=== PATIENT | male | born 1975 ===

== ENCOUNTER 2017-06-16 08:17 | Observation (INO) | payer BC ==
--- NOTE | 2017-06-16 08:59 | ED PDOC ---
HPI: Abdomen Time Seen by Provider: 06/16/17 08:20 Chief Complaint (Nursing): Abdominal Pain Chief Complaint (Provider): Abdominal Pain History Per: Patient History/Exam Limitations: no limitations Onset/Duration Of Symptoms: Days (x2) Current Symptoms Are (Timing): Still Present Location Of Pain/Discomfort: RLQ Additional Complaint(s): Anthony Torres is a 41 year old male presenting to the ED for right lower quadrant abdominal pain occurring since Friday associated with 3 episodes of vomiting. The patient denies diarrhea or fever. PMD: Non [facility] Provider Past Medical History Reviewed: Historical Data, Nursing Documentation, Vital Signs Vital Signs: Last Vital Signs Temp 97.0 F L 06/16/17 08:36 Pulse 93 H 06/16/17 08:36 Resp 19 06/16/17 08:36 BP 112/70 06/16/17 08:36 Pulse Ox 99 06/16/17 09:00 - Medical History PMH: No Chronic Diseases - Family History Family History: States: Unknown Family Hx - Social History Current smoker - smoking cessation education provided: No Ex-Smoker (has not smoked in the last 12 months): No Alcohol: Social Drugs: Denies - Home Medications Home Medications: Ambulatory Orders Medication Instructions Recorded Magaldrate/Simethicone [Ri-Mag 80 mg PO DAILY 06/16/17 Plus Suspension] - Allergies Allergies/Adverse Reactions: Allergies Allergy/AdvReac Type Severity Reaction Status Date / Time No Known Allergies Allergy Verified 06/16/17 08:39 Review of Systems ROS Statement: Except As Marked, All Systems Reviewed And Found Negative Constitutional: Negative for: Fever Gastrointestinal: Positive for: Vomiting, Abdominal Pain (RLQ abdominal pain). Negative for: Diarrhea Physical Exam - Reviewed Nursing Documentation Reviewed: Yes Vital Signs Reviewed: Yes - Physical Exam Appears: Positive for: Non-toxic, No Acute Distress Head Exam: Positive for: ATRAUMATIC, NORMOCEPHALIC Cardiovascular/Chest: Positive for: Regular Rate, Rhythm Respiratory: Positive for: Normal Breath Sounds Gastrointestinal/Abdominal: Positive for: Tenderness (to RLQ), Guarding (to RLQ) Neurologic/Psych: Positive for: Alert, Oriented (X3). Negative for: Motor/ Sensory Deficits - Laboratory Results Result Diagrams: 06/16/17 09:05 06/16/17 09:05 - ECG O2 Sat by Pulse Oximetry: 99 (RA) Pulse Ox Interpretation: Normal Medical Decision Making Medical Decision Making: Time: 08:20 Impression: Abdominal Pain Plan: * CT Abd & Pelvis IV contrast only * CMP * CBC (with differential) * Reevaluation Scribe Attestation: Documented by Suad Silver, acting as a scribe for David Garcia MD. Provider Scribe Attestation: All medical record entries made by the Scribe were at my direction and personally dictated by me. I have reviewed the chart and agree that the record accurately reflects my personal performance of the history, physical exam, medical decision making, and the department course for this patient. I have also personally directed, reviewed, and agree with the discharge instructions and disposition. Disposition - Clinical Impression Clinical Impression: Appendicitis - Patient ED Disposition Is Patient to be Admitted: Yes - Disposition Disposition Time: 10:25 Condition: FAIR Forms: [employer] (Slovenian) - Pt Status Changed To: Hospital Disposition Of: Observation - POA Present On Arrival: None
[2017-06-16 09:16] LABS: BASO # 0.1 K/uL (0.0-0.2); BASO % 0.5 % (0.0-2.0); EOS % 0.2 % (0.0-4.0); HEMATOCRIT 42.1 % (35.0-51.0); LYMPH # 1.2 K/uL (1.0-4.3); LYMPH % 7.8 % (20.0-40.0); MEAN CELL VOLUME 92.9 fl (80.0-94.0); MEAN CORPUSCULAR HEMOGLOBIN 31.2 pg (27.0-31.0); MEAN CORPUSCULAR HGB CONC 33.6 g/dL (33.0-37.0); MONO # 1.1 K/uL (0.0-0.8); MONO % 7.3 % (0.0-10.0); NEUT # 13.2 K/uL (1.8-7.0); NEUT % 84.2 % (50.0-75.0); NRBC % 0.1 % (0.0-0.0); PLATELET COUNT 185 K/uL (130-400); RED CELL DISTRIBUTION WIDTH 12.4 % (11.5-14.5); WHITE BLOOD COUNT 15.7 K/uL (4.8-10.8)
[2017-06-16 09:31] LABS: ALB/GLOB RATIO 1.4 (1.0-2.1); ALKALINE PHOSPHATASE 50 U/L (38-126); ALT/SGPT 30 U/L (21-72); AST/SGOT 24 U/L (17-59); BILIRUBIN,TOTAL 1.2 mg/dl (0.2-1.3); BLOOD UREA NITROGEN 11 mg/dl (9-20); CALCIUM 9.7 mg/dL (8.4-10.2); CARBON DIOXIDE 30 mmol/L (22-30); CHLORIDE 100 mmol/L (98-107); GFR AFRICAN-AMERICAN > 60; GLUCOSE,RANDOM 110 mg/dL (75-110); POTASSIUM 4.2 MMOL/L (3.6-5.0); SODIUM 142 mmol/l (132-148); TOTAL PROTEIN 7.8 G/DL (6.3-8.2)
[2017-06-16] MEDS ORDERED: Iohexol 300 100 ML IJ ONE (09:54)
--- NOTE | 2017-06-16 10:25 | CT ---
PROCEDURE: CT abdomen and pelvis dated 06/16/2017 HISTORY: RLQ pain COMPARISON: None. TECHNIQUE: Contiguous axial images of the abdomen and pelvis. Pelvis performed following oral and intravenous injection of approximately 99 cc Omnipaque 300 contrast Coronal and Sagittal reformats generated. Radiation dose: Total exam DLP = 561.86 mGy-cm. This CT exam was performed using one or more of the following dose reduction techniques: Automated exposure control, adjustment of the mA and/or kV according to patient size, and/or use of iterative reconstruction technique. FINDINGS: LOWER THORAX: Unremarkable. LIVER: Liver exhibits relatively normal size measuring approximately 17.5 cm in CC dimension. Very mild diffuse fatty hepatic infiltration. No obvious hepatic mass collection or calcification. Portal and splenic veins are opacified. . GALLBLADDER AND BILE DUCTS: The gallbladder is physiologically distended. No evidence of intraluminal gallbladder calculi. No pericholecystic fluid collections are identified. PANCREAS: The pancreas appears grossly unremarkable without mass collection or calcification. No significant ductal dilatation SPLEEN: Spleen exhibits normal size and attenuation pattern without mass collection or calcification. Adjacent small splenule along adjacent to the inferior border of the main body of the spleen. ADRENALS: No adrenal lesions. . KIDNEYS AND URETERS: The kidneys demonstrate symmetric nephrograms. No evidence of nephrolithiasis or hydronephrosis. No obvious renal mass or collection. BLADDER: Urinary bladder is incompletely distended which presumably accounts for thick-walled appearance. Muscular hypertrophy may contribute. REPRODUCTIVE: Prostate gland and seminal vesicles appear grossly unremarkable. APPENDIX: There is dilatation and wall thickening of the appendix with infiltration can't rule out possibly a small amount of fluid within the adjacent mesentery consistent with acute appendicitis. . Microperforation not excluded BOWEL: Evaluation of the bowel is limited due to the lack of oral contrast material. Stomach is incompletely distended which presumably accounts for thick-walled appearance. Possibility of a gastritis not excluded. Visualized loops of small bowel exhibit normal contour and caliber. No evidence of acute mechanical small bowel obstruction. There is a moderately large amount of stool within the cecum and at ascending and to a lesser degree transverse colon consistent with fecal retention/constipation. PERITONEUM: Unremarkable. No fluid collection. No free air. . Small fat containing umbilical hernia. LYMPH NODES: Few small nonspecific retroperitoneal lymph nodes. In addition, there are several small to medium sized lymph nodes in the right mid and lower quadrant of the abdomen that may represent concomitant mesenteric adenitis VASCULATURE: Unremarkable. No aortic aneurysm. BONES: Minor multilevel degenerative spondylosis of the lower thoracic and lumbar spine OTHER FINDINGS: None. IMPRESSION: Findings consistent with acute appendicitis as described. Microperforation not excluded. Several small to medium sized lymph nodes right mid and lower abdomen may represent concomitant mesenteric adenitis
[2017-06-16] MEDS ORDERED: Piperacillin/Tazobact 3.375 GM in Sodium Chloride 0.9% 100 ML IVPB STA (10:52)
--- NOTE | 2017-06-16 11:36 | CP.PCM.CON ---
History of Present Illness - History of Present Illness History of Present Illness: General Surgery Consult note for Dr. Calhoun Consulted for: Acute appendicitis Patient is a 41 year old male who denies PMH except for a left chest tube placement as an who presented to the ED with severe abdominal pain, nausea, and vomiting for 2 days. Patient states that after dinner on Friday he had pain in the epigastrium that spread to the RLQ. On Friday he had nausea, NB/NB emesis, and subjective fever and chills. Patient came to ER this AM after symptoms did not resolve. Patient denies any diarrhea, hematochezia, melena, hematemesis, dysuria, hematuria, chest pain, SOB, or any other symptoms. CT of abdomen and pelvis showed acute appendicitis with possible microperforation PMH: denies PSH: chest tube as All NKDA Soc: denies tobacco, 6 glasses of wine/week, denies illicit drugs Review of Systems - Review of Systems All systems: reviewed and no additional remarkable complaints except - Constitutional Constitutional: Chills, Fever. absent: Weakness - Cardiovascular Cardiovascular: absent: Chest Pain, Chest Pain at Rest, Dyspnea - Respiratory Respiratory: absent: Cough, Dyspnea, Dyspnea on Exertion - Gastrointestinal Gastrointestinal: As Per HPI, Abdominal Pain, Nausea, Vomiting. absent: Diarrhea, Hematemesis, Loose Stools, Melena - Genitourinary Genitourinary: Pyuria. absent: Dysuria - Musculoskeletal Musculoskeletal: Back Pain. absent: Numbness, Tingling - Neurological Neurological: absent: Numbness, Tingling Past Patient History - Infectious Disease Hx of Infectious Diseases: None - Past Medical History & Family History Past Medical History?: No - Past Social History Smoking Status: Never Smoked - CARDIAC Hx Cardiac Disorders: No - PULMONARY Hx Respiratory Disorders: Yes Other/Comment: left lung atelectasis as a child - NEUROLOGICAL Hx Neurological Disorder: No - HEENT Hx HEENT Problems: No - RENAL Hx Chronic Kidney Disease: No - ENDOCRINE/METABOLIC Hx Endocrine Disorders: No - HEMATOLOGICAL/ONCOLOGICAL Hx Blood Disorders: No - INTEGUMENTARY Hx Dermatological Problems: No - MUSCULOSKELETAL/RHEUMATOLOGICAL Hx Musculoskeletal Disorders: No - GASTROINTESTINAL Hx Gastrointestinal Disorders: No - GENITOURINARY/GYNECOLOGICAL Hx Genitourinary Disorders: No - PSYCHIATRIC Hx Psychophysiologic Disorder: No Hx Emotional Abuse: No Hx Physical Abuse: No Hx Substance Use: No - SURGICAL HISTORY Hx Surgeries: Yes Other/Comment: left chest tube in childhood - ANESTHESIA Hx Anesthesia: Yes Hx Anesthesia Reactions: No Meds Allergies/Adverse Reactions: Allergies Allergy/AdvReac Type Severity Reaction Status Date / Time No Known Allergies Allergy Verified 06/16/17 08:39 - Medications Medications: Current Medications Piperacillin Sod/Tazobactam (Sod 3.375 gm/ Sodium Chloride) 100 mls @ 100 mls/ hr IVPB STAT STA Stop: 06/16/17 11:51 Results - Vital Signs Recent Vital Signs: Last Vital Signs Temp 97.0 F L 06/16/17 08:36 Pulse 72 06/16/17 10:28 Resp 19 06/16/17 08:36 BP 112/70 06/16/17 08:36 Pulse Ox 99 06/16/17 10:25 - Labs Result Diagrams: 06/16/17 09:05 06/16/17 09:05
--- NOTE | 2017-06-16 11:40 | CP.PCM.HP ---
History of Present Illness - History of Present Illness History of Present Illness: History and physical for Dr. Manjinder Calhoun 41M with acute appendicitis Patient is a 41 year old male who denies PMH except for a left chest tube placement as an infant who presented to the ED with severe abdominal pain, nausea, and vomiting for 2 days. Patient states that after dinner on Friday he had pain in the epigastrium that spread to the RLQ. On Friday he had nausea, NB/NB emesis, and subjective fever and chills. Patient came to ER this AM after symptoms did not resolve. Patient denies any diarrhea, hematochezia, melena, hematemesis, dysuria, hematuria, chest pain, SOB, or any other symptoms. CT of abdomen and pelvis showed acute appendicitis PMH: denies PSH: chest tube as infant All NKDA Soc: denies tobacco, 6 glasses of wine/week, denies illicit drugs Present on Admission - Present on Admission Any Indicators Present on Admission: No Review of Systems - Review of Systems Review of Systems: All systems: reviewed and no additional remarkable complaints except - Constitutional Constitutional: Chills, Fever. absent: Weakness - Cardiovascular Cardiovascular: absent: Chest Pain, Chest Pain at Rest, Dyspnea - Respiratory Respiratory: absent: Cough, Dyspnea, Dyspnea on Exertion - Gastrointestinal Gastrointestinal: As Per HPI, Abdominal Pain, Nausea, Vomiting. absent: Diarrhea, Hematemesis, Loose Stools, Melena - Genitourinary Genitourinary: Pyuria. absent: Dysuria - Musculoskeletal Musculoskeletal: Back Pain. absent: Numbness, Tingling - Neurological Neurological: absent: Numbness, Tingling Past Patient History - Infectious Disease Hx of Infectious Diseases: None - Past Medical History & Family History Past Medical History?: No Past Family History: Reviewed and not pertinent - Past Social History Smoking Status: Never Smoked Chewing Tobacco Use: No Alcohol: < 2 Drinks/Day Drugs: Denies Home Situation {Lives}: With Family - CARDIAC Hx Cardiac Disorders: No - PULMONARY Hx Respiratory Disorders: Yes Other/Comment: left lung atelectasis as a child - NEUROLOGICAL Hx Neurological Disorder: No - HEENT Hx HEENT Problems: No - RENAL Hx Chronic Kidney Disease: No - ENDOCRINE/METABOLIC Hx Endocrine Disorders: No - HEMATOLOGICAL/ONCOLOGICAL Hx Blood Disorders: No - INTEGUMENTARY Hx Dermatological Problems: No - MUSCULOSKELETAL/RHEUMATOLOGICAL Hx Musculoskeletal Disorders: No - GASTROINTESTINAL Hx Gastrointestinal Disorders: No - GENITOURINARY/GYNECOLOGICAL Hx Genitourinary Disorders: No - PSYCHIATRIC Hx Psychophysiologic Disorder: No Hx Emotional Abuse: No Hx Physical Abuse: No Hx Substance Use: No - SURGICAL HISTORY Hx Surgeries: Yes Other/Comment: left chest tube in childhood - ANESTHESIA Hx Anesthesia: Yes Hx Anesthesia Reactions: No Meds Allergies/Adverse Reactions: Allergies Allergy/AdvReac Type Severity Reaction Status Date / Time No Known Allergies Allergy Verified 06/16/17 08:39 Physical Exam - Constitutional Appears: Non-toxic, No Acute Distress - Head Exam Head Exam: ATRAUMATIC, NORMOCEPHALIC - Eye Exam Eye Exam: Normal appearance. absent: Conjunctival injection, Scleral icterus - Respiratory Exam Respiratory Exam: NORMAL BREATHING PATTERN. absent: Accessory Muscle Use, Respiratory Distress - Cardiovascular Exam Cardiovascular Exam: RRR - GI/Abdominal Exam GI & Abdominal Exam: Soft, Tenderness (RUQ and RLQ, periumbilical). absent: Distended Additional comments: negative rovsing's sign, positive mcburney's point tenderness - Extremities Exam Extremities exam: Negative for: calf tenderness, pedal edema, tenderness - Neurological Exam Neurological exam: Alert, Oriented x3 - Psychiatric Exam Psychiatric exam: Normal Affect, Normal Mood - Skin Skin Exam: Dry, Intact, Warm Results - Vital Signs Recent Vital Signs: Last Vital Signs Temp 97.0 F L 06/16/17 08:36 Pulse 72 06/16/17 10:28 Resp 19 06/16/17 08:36 BP 112/70 06/16/17 08:36 Pulse Ox 99 06/16/17 10:25 - Labs Result Diagrams: 06/16/17 09:05 06/16/17 09:05 Assessment & Plan - Assessment and Plan (Free Text) Assessment: 41M with Acute appendicitis Afebrile WBC: 15.7 CT: dilated appendix with wall thickening and surrounding fat stranding Plan: -OR today for laparoscopic appendectomy -NPO -IV abx, IV fluids -SCD's, incentive spirometer -daily CBC/CMP -PRN pain medication and nausea medication Discussed with Dr. Lj Sanders, PGY2
[2017-06-16] MEDS ORDERED: Piperacillin/Tazobact 3.375 gm Inj IVPB ONE ×2 (11:44→16:00)
[2017-06-16] MEDS: Lactated Ringer's 1,000 ML IV SCH ×2 (11:53→21:03)
[2017-06-16 12:37] LABS: NEUTROPHIL 82 % (42-75); TOTAL CELLS COUNTED 100
[2017-06-16] MEDS ORDERED: Lidocaine 1% Inj (20ml) ONE (13:03)
[2017-06-16] MEDS ORDERED: Bupivacaine 0.5% Inj(30mL) ONE (13:04)
--- NOTE | 2017-06-16 14:58 | RAD ---
PROCEDURE: CHEST RADIOGRAPH, 1 VIEW HISTORY: pre op COMPARISON: None available. FINDINGS: LUNGS: Clear. PLEURA: Mild biapical pleural thickening. No evidence of effusion or pneumothorax CARDIOVASCULAR: Normal. OSSEOUS STRUCTURES: No significant abnormalities. VISUALIZED UPPER ABDOMEN: Normal. OTHER FINDINGS: None. IMPRESSION: No acute consolidation. Mild biapical pleural thickening.
[2017-06-16] MEDS ORDERED: Propofol 10 mg/ml Inj (20 ML) ONE ×2 (15:24→16:35)
[2017-06-16] MEDS ORDERED: ePHEDrine 50 mg/ml Inj ONE (15:24)
[2017-06-16] MEDS ORDERED: Rocuronium 10 mg/ml (5 ml) ONE (15:25)
[2017-06-16] MEDS ORDERED: Succinylcholine 200 mg/10 ml Inj IV ONE (15:26)
[2017-06-16] MEDS ORDERED: Lidocaine 4% (Laryng-O-Jet) Kit MM ONE (15:26)
[2017-06-16] MEDS ORDERED: Midazolam 2 MG/2 ML VIAL ONE (15:40)
--- NOTE | 2017-06-16 15:42 | CARD ---
APPROVED REPORT EKG Measurement Heart [id number] <Conclusion> Normal sinus rhythm Incomplete right bundle branch block Borderline ECG
[2017-06-16] MEDS ORDERED: Lactated Ringer's 1,000 ML IV ONE ×2 (15:50→16:50)
[2017-06-16] MEDS ORDERED: Dexamethasone 4 mg/1 ml ONE (16:08)
[2017-06-16] MEDS ORDERED: Bupivacaine 0.5% 50 ML IJ ONE ×2 (16:15)
[2017-06-16] MEDS ORDERED: Neostigmine Methylsulfate 3mg/3ml Syringe IV ONE (16:36)
[2017-06-16] MEDS ORDERED: HYDROmorphone 0.5 mg/0.5 ml ISec IVP PRN (17:42)
--- NOTE | 2017-06-16 17:42 | PCM.SURG1 ---
Surgeon's Initial Post Op Note - Surgeon's Notes Surgeon: Dr. Calhoun Director Utilization Management: Dr. Moody PGY3, Dr. Sanders PGY2 Type of Anesthesia: General Endo, Local Pre-Operative Diagnosis: acute appendicitis Operative Findings: acute inflammed appendix Post-Operative Diagnosis: same Operation Performed: laparoscopic appendectomy Specimen/Specimens Removed: appendix Estimated Blood Loss: EBL {In ML}: 15 Blood Products Given: N/A Drains Used: No Drains Post-Op Condition: Good Date of Surgery/Procedure: 06/16/17 Time of Surgery/Procedure: 17:44
[2017-06-16] MEDS ORDERED: Oxycodone/Acetaminophen 5/325 mg Tab PO PRN (17:46)
[2017-06-16] MEDS: Piperacillin/Tazobact 3.375 GM in Sodium Chloride 0.9% 100 ML IVPB SCH (21:02)
[2017-06-17] MEDS: Piperacillin/Tazobact 3.375 GM in Sodium Chloride 0.9% 100 ML IVPB SCH ×2 (03:22→09:16)
[2017-06-17] MEDS: Lactated Ringer's 1,000 ML IV SCH ×2 (03:30→11:45)
[2017-06-17 06:30] LABS: MEAN CELL VOLUME 93.3 fl (80.0-94.0); MEAN CORPUSCULAR HEMOGLOBIN 31.2 pg (27.0-31.0); MEAN CORPUSCULAR HGB CONC 33.4 g/dL (33.0-37.0); RED CELL DISTRIBUTION WIDTH 12.4 % (11.5-14.5); WHITE BLOOD COUNT 12.1 K/uL (4.8-10.8)
[2017-06-17 06:32] VITALS: O2SAT 97
[2017-06-17 06:37] LABS: BLOOD UREA NITROGEN 9 mg/dl (9-20); CALCIUM 8.9 mg/dL (8.4-10.2); CARBON DIOXIDE 29 mmol/L (22-30); CHLORIDE 101 mmol/L (98-107); GFR AFRICAN-AMERICAN > 60; GLUCOSE,RANDOM 111 mg/dL (75-110); POTASSIUM 4.2 MMOL/L (3.6-5.0); SODIUM 138 mmol/l (132-148)
[2017-06-17 08:49] VITALS: BP 116/89; PULSE 67; RESP 18; TEMP 98
--- NOTE | 2017-06-17 10:09 | CP.PCM.DIS ---
Provider - Provider Date of Admission: 06/16/17 10:53 Attending physician: Manjinder Calhoun MD Time Spent in preparation of Discharge (in minutes): 20 Diagnosis - Discharge Diagnosis (1) Appendicitis Status: Acute Hospital Course - Lab Results Lab Results: Most Recent Lab Values WBC 12.1 K/uL (4.8-10.8) H 06/17/17 05:35 RBC 3.96 Mil/uL (4.40-5.90) L 06/17/17 05:35 Hgb 12.3 g/dL (12.0-18.0) 06/17/17 05:35 Hct 37.0 % (35.0-51.0) 06/17/17 05:35 MCV 93.3 fl (80.0-94.0) 06/17/17 05:35 MCH 31.2 pg (27.0-31.0) H 06/17/17 05:35 MCHC 33.4 g/dL (33.0-37.0) 06/17/17 05:35 RDW 12.4 % (11.5-14.5) 06/17/17 05:35 Plt Count 161 K/uL (130-400) 06/17/17 05:35 MPV 8.0 fl (7.2-11.7) 06/16/17 09:05 Neut % (Auto) 84.2 % (50.0-75.0) H 06/16/17 09:05 Lymph % (Auto) 7.8 % (20.0-40.0) L 06/16/17 09:05 Ellis % (Auto) 7.3 % (0.0-10.0) 06/16/17 09:05 Eos % (Auto) 0.2 % (0.0-4.0) 06/16/17 09:05 Baso % (Auto) 0.5 % (0.0-2.0) 06/16/17 09:05 Neut # 13.2 K/uL (1.8-7.0) H 06/16/17 09:05 Lymph # 1.2 K/uL (1.0-4.3) 06/16/17 09:05 Ellis # 1.1 K/uL (0.0-0.8) H 06/16/17 09:05 Eos # 0.0 K/uL (0.0-0.7) 06/16/17 09:05 Baso # 0.1 K/uL (0.0-0.2) 06/16/17 09:05 Neutrophils % (Manual) 82 % (42-75) H 06/16/17 09:05 Lymphocytes % (Manual) 11 % (20-50) L 06/16/17 09:05 Monocytes % (Manual) 7 % (0-10) 06/16/17 09:05 Platelet Estimate Normal (NORMAL) 06/16/17 09:05 RBC Morphology Normal (NORMAL) 06/16/17 09:05 Sodium 138 mmol/l (132-148) 06/17/17 05:35 Potassium 4.2 MMOL/L (3.6-5.0) 06/17/17 05:35 Chloride 101 mmol/L (98-107) 06/17/17 05:35 Carbon Dioxide 29 mmol/L (22-30) 06/17/17 05:35 Anion Gap 12 (10-20) 06/17/17 05:35 BUN 9 mg/dl (9-20) 06/17/17 05:35 Creatinine 0.9 mg/dL (0.8-1.5) 06/17/17 05:35 Est GFR ( Amer) > 60 06/17/17 05:35 Est GFR (Non-Af Amer) > 60 06/17/17 05:35 Random Glucose 111 mg/dL (75-110) H 06/17/17 05:35 Calcium 8.9 mg/dL (8.4-10.2) 06/17/17 05:35 Total Bilirubin 1.2 mg/dl (0.2-1.3) 06/16/17 09:05 AST 24 U/L (17-59) 06/16/17 09:05 ALT 30 U/L (21-72) 06/16/17 09:05 Alkaline Phosphatase 50 U/L (38-126) 06/16/17 09:05 Total Protein 7.8 G/DL (6.3-8.2) 06/16/17 09:05 Albumin 4.5 g/dL (3.5-5.0) 06/16/17 09:05 Globulin 3.2 gm/dL (2.2-3.9) 06/16/17 09:05 Albumin/Globulin Ratio 1.4 (1.0-2.1) 06/16/17 09:05 - Hospital Course Hospital Course: 41M came into the hospital for acute appendicitis. Patient was taken to the operating room for a laparoscopic appendectomy. Post operative course was uncomplicated. Tolerating diet, ambulating well, and minimal pain post operative. Patient cleared for discharge in good condition. - Date & Time of H&P Date of H&P: 06/16/17 Discharge Exam - Head Exam Head Exam: ATRAUMATIC, NORMOCEPHALIC - Eye Exam Eye Exam: EOMI. absent: Scleral icterus - ENT Exam ENT Exam: Mucous Membranes Moist - Respiratory Exam Respiratory Exam: NORMAL BREATHING PATTERN. absent: Accessory Muscle Use, Rales , Rhonchi, Wheezes, Respiratory Distress - Cardiovascular Exam Cardiovascular Exam: REGULAR RHYTHM, +S1, +S2. absent: Bradycardia, Tachycardia - GI/Abdominal Exam GI & Abdominal Exam: Soft. absent: Distended, Firm, Guarding, Hernia, Tenderness Additional comments: appropriately tender around incision - Extremities Exam Extremities exam: normal inspection - Back Exam Back exam: absent: CVA tenderness (L), CVA tenderness (R) - Neurological Exam Neurological exam: Alert, Oriented x3 - Psychiatric Exam Psychiatric exam: Normal Affect, Normal Mood - Skin Skin Exam: Intact, Normal Color Discharge Plan - Follow Up Plan Condition: FAIR Disposition: HOME/ ROUTINE Instructions: Ibuprofen (By mouth), Appendicitis (DC), Laparoscopic Appendectomy (DC) Additional Instructions: Can shower today. Do not soak in bath or swim in ocean. no heaving lifting greater than 10lbs for the next 4-6weeks. Take Tylenol and Motrin for pain. follow up in 1-2 weeks for office appointment.
[2017-06-17] MEDS ORDERED: Influenza Vaccine 18yr & older 0.5 ML/45 MCG SYR IM ONE (11:08)
[2017-06-18] MEDS ORDERED: SIMETHICONE PO SCH (09:00)
[2017-06-18] MEDS ORDERED: [UNRECOGNIZED DRUG - OTHER] PO SCH (09:00)
--- NOTE | 2017-06-26 15:11 | OP ---
PROCEDURE DATE: 06/16/2017 SURGEON: Dr. Manjinder Calhoun HYDROGRAPHICAL TECHNICAL OFFICER: Dr. Sanders and Dr. Moody In the operating room, the patient was identified by name, name of the procedure, laterality, my capo, the consent form, his birthday on wristband. [place] and NG tube were placed. The abdomen was prepped and draped and after successful timeout, the operation began. FINDINGS: Acute appendicitis. Appendectomy performed without a specimen. ESTIMATED BLOOD LOSS: Minimal. COMPLICATIONS: None. DESCRIPTION OF PROCEDURE: In the operating room, the patient was identified by name, name of procedure as discussed. The abdomen was prepped and draped in the usual manner. An umbilical 12 mm Visiport was placed after the Veress needle was inserted, where 2 L of CO2 insufflated. The Visiport was placed, the abdomen entered. It was pretty much unremarkable. The tip of the appendix was rapidly found. A left lower quadrant 5 mm and suprapubic 5 mm were placed without issue. Going up on the fundus and then the infundibulum of the appendix, the mesentery was serially scored, dissected, taken under direct vision with Harmonic scalpel. The dissection was then proceeded down to the base. The base was ascertained very nicely and the base was taken with an Endo LINDA. Specimen was removed in a bag. The abdomen was irrigated and dried. There was nothing untoward noted. There was a little bit of bleeding from the appendiceal mesentery that was clamped under direct vision with the Harmonic scalpel and burnt. The fundamentals was in fact operation otherwise. The patient was taken to the recovery room in good condition after the sponge and needle count was declared correct. Manjinder Calhoun MD
== END 2017-06-17 12:15 | disposition home or self-care (01) ==
LOC: H.ER 08:17 → H.ERHOLD 10:53 → H.MEDSURG1 18:34
PROVIDERS: ADMIT Surgery; ATTEND Surgery
DX: K35.80 Unspecified acute appendicitis (principal); Z23 Encounter for immunization
CPT/HCPCS: 36415; 44970; 71010; 74177; 80048; 80053; 85025; 85027; 88304; 93005; 96361; 96365; 96366; 96376; 99282; G0008; G0378; J0330; J1100; J2001; J2175; J2250; J2405; J2543; J2704; J2710; J2765; J3010; J7120; Q2035; Q9967